=== PATIENT | female | born 1980 | race Caucasian/White ===

== ENCOUNTER 2022-11-12 08:40 | Emergency (ER) | payer OTHER, SELFPAY ==
[2022-11-12 08:43] VITALS: BP 154/91; PULSE 71; RESP 20; TEMP 36.8; O2SAT 98; BMI 27.4
--- NOTE | 2022-11-12 09:18 | ED.BACK1 ---
HPI - Back Pain/Injury General Chief Complaint: Back Pain/Injury Stated Complaint: BACK PAIN Time Seen by Provider: 11/12/22 09:18 Source: patient Mode of arrival: walk-in Limitations: no limitations History of Present Illness HPI Narrative: The patient have history of chronic back pain presenting to us with exacerbation of her back pain over the last 24 hours, she mentioned that she does a lot of physical work and bending and grabbing heavy objects The patient mentioned that she feels the pain going down her left leg toward the knee level there was no numbness weakness or any other complaints she did take some ibuprofen yesterday at work and it helped but the pain came back again The patient denies any other complaints Related Data Home Medications Medication Instructions Recorded Confirmed atenolol 50 mg tablet 50 mg PO DAILY 11/12/22 11/12/22 omeprazole 20 mg capsule,delayed 20 mg PO DAILY 11/12/22 11/12/22 release Previous Rx's Medication Instructions Recorded meloxicam 15 mg tablet 15 mg PO DAILY PRN pain #14 tabs 11/12/22 orphenadrine citrate 100 mg 100 mg PO BID PRN muscle spasm #10 11/12/22 tablet,extended release tabs Allergies Allergy/AdvReac Type Severity Reaction Status Date / Time No Known Drug Allergies Allergy Verified 11/12/22 08:47 Review of Systems ROS Status of ROS 10 or more systems reviewed and unremarkable except as noted in history and below [facility] Social History Smoking status: Heavy tobacco smoker Exam Narrative Exam Narrative: Nurses notes and vital signs reviewed and patient is not hypoxic. General: Well-appearing and in no apparent distress. Skin: Warm, dry, no pallor noted. No rash. Head: Normocephalic, atraumatic. Neck: Supple, non-tender. Eye: Pupils are equal, round and EOMI. No scleral icterus. Ears, Nose, Mouth, and Throat: TM are clear, no nasal mucosal hypertrophy. Oral mucosa is moist, no posterior oropharynx erythema, uvula is mid-line Cardiovascular: Regular Rate and Rhythm without murmur, gallop or rub. Respiratory: No accessory muscle use or respiratory distress. Lungs are clear to auscultation, no wheezing, rales or rhonchi Chest Wall: no tenderness Back: No midline thoracic or lumbar vertebral tenderness. No CVA tenderness Musculoskeletal: normal ROM, no calf or popliteal tenderness, no lower extremity edema/swelling GI: Abdomen is soft, non-distended. Normal bowel sounds. No masses appreciated. No tenderness to palpation. No rebound, guarding, or rigidity noted. Neurological: A&O x4. No cranial nerve dysfunction observed. No truncal ataxia. Moves all extremities. Sensation intact. Psychiatric: Cooperative and interactive. Normal mood and affect. Constitutional Vital Signs, click to edit/add: Last Vital Signs Temp 98.3 F 11/12/22 08:43 Pulse 71 11/12/22 08:43 Resp 20 11/12/22 08:43 BP 154/91 H 11/12/22 08:43 Pulse Ox 98 11/12/22 08:43 O2 Del Method Room Air 11/12/22 08:43 Course Vital Signs Vital signs: Vital Signs Temperature 98.3 F 11/12/22 08:43 Pulse Rate 71 11/12/22 08:43 Respiratory Rate 20 11/12/22 08:43 Blood Pressure 154/91 H 11/12/22 08:43 Pulse Oximetry 98 11/12/22 08:43 Oxygen Delivery Method Room Air 11/12/22 08:43 Temperature 98.3 F 11/12/22 08:43 Pulse Rate 71 11/12/22 08:43 Respiratory Rate 20 11/12/22 08:43 Blood Pressure 154/91 H 11/12/22 08:43 Pulse Oximetry 98 11/12/22 08:43 Oxygen Delivery Method Room Air 11/12/22 08:43 MDM - Back Pain/Injury MDM Narrative Medical decision making narrative: The patient presenting with back pain with no alarming symptoms and I could not elicit the pain on examination as there is no intervertebral line tenderness but there is only mild paraspinal muscle tenderness mostly in the left side The patient was treated in the ER with Toradol discharged home with Mobic as she have a history of acid reflux and Norflex The patient to come back in case of any new symptoms or concern The patient is to follow up with primary care physician in next 2-3 days or to return to the emergency department should any of the signs or symptoms worsen or new symptoms develop. The patient agrees with the following Diagnosis and Treatment plan and the patient will be discharged home. Discharge Plan Discharge Chief Complaint: Back Pain/Injury Clinical Impression: Sciatica, Strain of lumbar region Patient Disposition: Home, Self-Care Time of Disposition Decision: : Condition: Good Mode of Transportation: Private Vehicle Prescriptions / Home Meds: New meloxicam 15 mg tablet 15 mg PO DAILY PRN (Reason: pain) Qty: 14 0RF orphenadrine citrate 100 mg tablet extended release 100 mg PO BID PRN (Reason: muscle spasm) Qty: 10 0RF No Action atenolol 50 mg tablet 50 mg PO DAILY omeprazole 20 mg capsule,delayed release(DR/EC) 20 mg PO DAILY Instructions: Acute Low Back Pain (ED) Stand Alone Forms: Portal Instructions Referrals: Physician,Non-Staff, MD [Primary Care Provider] - 1 week Discharge Date/Time: 11/12/22 09:59
[2022-11-12] MEDS: KETOROLAC TROMETHAMINE 30 MG/ML VIAL IM (09:51)
== END 2022-11-12 09:59 | disposition home or self-care (01) ==
PROVIDERS: Emergency Provider Emergency Medicine
DX: S39.012A Strain of muscle, fascia and tendon of lower back, initial encounter (principal); M54.32 Sciatica, left side; X50.0XXA Overexertion from strenuous movement or load, initial encounter; Z79.899 Other long term (current) drug therapy; F17.210 Nicotine dependence, cigarettes, uncomplicated; K21.9 Gastro-esophageal reflux disease without esophagitis
CPT/HCPCS: 96372; 99284